=== PATIENT | female | born 2005 | race Caucasian/White ===

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

== ENCOUNTER 2025-04-30 11:18 | Outpatient (REF) | payer BC, SELFPAY ==
--- OUTSIDE RECORDS SUMMARY | 2025-05-01 13:08 | XMS_ITS | Encounter Summary ---
Author Organization [facility] Address [address] [place] [address] Phone Care Team Providers Care Category Planner Name Role Phone Sugey Santiago MD Primary Care Provider [phone] Encounter Details Date Type Department Care Team (Late st Contact Info) Description 10/06/2016 Documentation [facility] [place] [address] [place], [place] [id number] Family Medicine, Physician [facility] [place] [phone] Social History Tobacco Use Types Packs/Day Years Used Date Smoking Tobacco: Never Assessed Comments Unknown Sex and Gender Information Value Date Recorded Sex Assigned at Female 10/18/2021 1:51 PM EDT Legal Sex Female 4:57 PM EDT Gender Identity Female 10/18/2021 1:51 PM EDT Sexual Orientation Bisexual 11/26/2023 1: 46 PM EDT documented as of this encounter Plan of Treatment Not on file documented as of this encounter Visit Diagnoses Not on filedocumented in this encounter Care Teams Category Planner Relationship Specialty Start Date End Date Sugey Santiago MD [address] [place] [phone] PCP - General Pediatrics 10/30/22 documented as of this encounter
--- OUTSIDE RECORDS SUMMARY | 2025-05-01 13:08 | XMS_ITS | Encounter Summary ---
Author Organization [facility] Address [address] [place] [address] Phone Care Team Providers Care Oracle Technical Developer Name Role Phone Sugey Santiago MD Primary Care Provider [phone] Encounter Details Date Type Department Care Team (Late st Contact Info) Description 01/24/2017 Document[place] [facility] [place] [address] [place], [place] [phone] Family Medicine, Physician [facility] [place], [place] [phone] Social History Tobacco Use Types Packs/Day Years [...] on filedocumented in this encounter Care Teams Oracle Technical Developer Relationship Specialty Start Date End Date Sugey Santiago MD [address] [place] [phone] PCP - General Pediatrics 10/30/22 documented as of this encounter
--- OUTSIDE RECORDS SUMMARY | 2025-05-01 13:08 | XMS_ITS | Encounter Summary ---
Author Organization [facility] Address [address] [place] [address] Phone Care Team Providers Care Script Girl Name Role Phone Sugey Santiago MD Primary Care Provider [phone] Encounter Details Date Type Department Care Team (Late st Contact Info) Description 03/22/2017 Conversion Encounter [facility] [place] [address] [place] [address] Social History Tobacco Use Types Packs/Day Years [...] on filedocumented in this encounter Care Teams Script Girl Relationship Specialty Start Date End Date Sugey Santiago MD [address] [place] [address] PCP - General Pediatrics 10/30/22 documented as of this encounter
--- OUTSIDE RECORDS SUMMARY | 2025-05-01 13:08 | XMS_ITS | Encounter Summary ---
Author Organization [facility] Address [address] [place] [address] Phone Care Team Providers Care Vehicle Window Tinter Name Role Phone Sugey Santiago MD Primary Care Provider [phone] Encounter Details Date Type Department Care Team (Late st Contact Info) Description 10/03/2016 Documentation [facility] [place] [facility] [place] [address] [place], [place] [phone] Family Medicine, Physician [facility] [place], [place] [address] Social History Tobacco Use Types Packs/Day Years [...] on filedocumented in this encounter Care Teams Vehicle Window Tinter Relationship Specialty Start Date End Date Sugey Santiago MD [address] [place] [address] PCP - General Pediatrics 10/30/22 documented as of this encounter
--- OUTSIDE RECORDS SUMMARY | 2025-05-01 13:08 | XMS_ITS | Clinical Summary ---
Author Organization [facility] Address [address] [place] [address] Phone Care Team Providers Care Fish Farmer Name Role Phone Sugey Santiago MD Primary Care Provider [phone] Allergies Active Allergy Reactions Criticality Noted Date Comments Cefaclor Hives Cefuroxime Hives 07/16/2023 Cephalexin Hives 07/16/2023 Influenza Virus Vaccine Split Hives And swollen arm Medications albuterol HFA 108 (90 Base) MCG/ACT inhaler PROAIR HFA; inhale 2 puff by inhalation route every 4 - 6 hours as needed; 90 MCG; 01/08/2017; Active 7 Active Vit-Iron Carbonyl-FA (Prenatabs Rx) 29-1 MG tablet TAKE 1 TABLET BY MOUTH EVERY DAY FOR 100 DAYS 5 Active Active Problems Problem Noted Date Diagnosed Date Encounter for initial prescription of contracept shravan pills 07/16/2023 Assessment & Plan (07/16/2023 5:04 PM EST): I reviewed options including control pills, implant, Depo shot, and IUD. Since she does not have a predisposition to blood clots and would like to regulate her menses, improve her menstrual cramps and acne, she is a good candidate for the combination control pill. I reviewed that control is only effective if taken every day. It is not effective at preventing STDs so if she is going to be sexually active, then she should use condoms consistently. It can take a few months to regulate her menses. Plan is to start OCPs on the Sunday of her next menses and follow up in 2 months, sooner if concern. Moderate asthma 11/20/2022 Overview (11/20/2022): 11/20/[address] Vidal 2 weeks ago for asthma exacerbation and treated with prednisone. Off prednisone now. Using albuterol prior to lacrosse practice. Has follow up with Dr Vidal in 1 month. Not taking Advair. Only on Singulair. Plan: Restart Advair as prescribed by Dr Vidal Continue Singulair Follow up with Dr Vidal in 1 month. Assessment & Plan (11/26/2023 1:45 PM EDT): Followed by Dr Vidal - last seen November 2022 at which time she was treated with prednisone for an asthma flare, Advair was restarted, and continued on Singulair. She is now been off all meds for a year and due to see Dr Vidal. Assessment & Plan (11/20/2022 9:36 AM EDT): Saw Dr Vidal 2 weeks ago for asthma exacerbation and treated with prednisone. Off prednisone now. Using albuterol prior to lacrosse practice. Has follow up with Dr Vidal in 1 month. Not taking Advair. Only on Singulair. Plan: Restart Advair as prescribed by Dr Vidal Continue Singulair Follow up with Dr Vidal in 1 month. Wears glasses 11/20/2022 Overview (11/20/2022): Wears glasses. Followed by Optho yearly Assessment & Plan (11/20/2022 9:38 AM EDT): Wears glasses. Followed by Optho yearly Resolved Problems Problem Noted Date Diagnosed Date Resolved Date Verruca pedis 07/16/2023 11/26/2023 TMJ (dislocation of temporom andibular joint), initial encounter 10/18/2021 11/26/2023 Overview (10/18/2021): Injury last summer 2020. To discuss with dentist to get referral to oral surgeon. Assessment & Plan (10/18/2021 2:19 PM EDT): Injury last summer 2020. To discuss with dentist to get referral to oral surgeon. History of COVID-19 07/18/2021 11/21/19 23 Overview (07/18/2021): 07/06/21 Assessment & Plan (10/18/2021 1:29 PM EDT): Continues to have loss of smell from Covid. Weight loss, abnormal 06/16/20202022 Assessment & Plan (10/18/2021 2:20 PM EDT): Pt has stopped losing weight. Did discuss trying to gain a bit more wt. Attention and concentration deficit 06/16/2020 10/18/2021 Overview (06/16/2020): Brother has ADHD and is on medication and followed by Dr Baxter. Father also with hx of ADHD and is on medication. Assessment & Plan (06/16/2020 5:38 PM EST): Pt is here with mom re struggling with school work and attention. She does not have a history of this dx. I recommended that she get evaluated by Alfonso Baxter who is the med provider for her brother as I am not comfortable giving her this diagnosis without more input from teachers which is hard to get given pt is doing school virtually and they do not know her well. Also with hx of anxiety. Anxiety 06/16/2020 11/20/2022 Overview (06/16/2020): Positive AZAR today. Long hx of anxiety per pt and mom. Assessment & Plan (10/18/2021 2:20 PM EDT): Somewhat improved Not interested in treatment Assessment & Plan (06/16/2020 5:40 PM EST): Positive AZAR today. Long hx of anxiety per pt and mom. Acne vulgaris 02/21/2018 11/20/2022 Overview (02/21/2018): Mild acne. Using clindamycin lotion and tretinoin .025 Mild intermittent asthma without complication 11/30/19 10 10/18/2021 Overview (02/12/2019): No sx in over a year. Assessment & Plan (02/21/2018 1:28 PM EDT): Has not used singulair in many months. Occas proair use as needed. Encounters Date Type Department Care Team Description 04/07/2025 Telephone [facility] [address] [place], [place] [phone] Kay Roth MA 04/01/2025 2:45 PM EDT Office Visit [facility] [address] [place] [address] Jeny Dowling NP Amenorrhea (Primary Dx) from Last 3 Months Immunizations Immunization Administration Dates Next Due DTaP / Hep B / IPV 01/10/2006,2005, 006 DTaP 5 08/12/2009,01/02/2007 HPV Vaccine 9 Valent 02/12/2019,02/21/2018 Hep A, ped/adol 07/17/2007,07/11/2006 Hep B, ped/adol 2005 Hib (HbOC) 01/02/2007 Hib (PRP-T) 01/10/2006,2005,2005 IPV 08/12/2009 Influenza, injectable, trivalent 010,08/11/2008,06/06/2007, 007,07/11/2006 MMR 08/12/2009 MMRV 07/11/2006 Meningococcal B Trumenba 11/26/2023,11/20/2022 Meningococcal Conj (Menactra) MCV4P 10/18/2021,0 02/21/2018 Pneumococcal Conjugate 01/02/2007,2005,2005, 006 Tdap 02/21/2018 Varicella 08/12/2009 Family History Medical History Relation Name Comments ADD / ADHD Brother Vincent Baker ADD / ADHD Father Ramana Baker Testicular cancer Father Ramana Baker Hypertension Maternal Grandfather No Known Problems Maternal Grandmother No Known Problems Mother Ashleigh Baker PATRICK disease Paternal Grandfather Hypertension Paternal Grandfather Relation Name Status Comments Brother Vincent Baker Alive Brother: Alive and well Father Ramana Baker Alive Father: Alive a nd well Maternal Grandfather Alive Maternal Grandmother Alive Mother Ashleigh Baker Alive Mother: Alive a nd well, thyroid Other No family histo ry of *Dental caries, Family history of *Sudden /ND under 55, No family history of *Heart Disease, Family history of Hypertension, No family history of *CVA/Stroke Paternal Grandfather Alive Paternal Grandmother Alive Social History Tobacco Use Types Packs/Day Years Used Date Smoking Tobacco: Never Assessed Hunger/Food Answer Date Recorded In the last 12 months, did y ou or your family ever eat less than you felt you should because there wasn't enough money for food? No 11/26/2023 Stable Housing Answer Date Recorded Are you worried that in the next 2 months you may not have stable housing? No 11/26/2023 Transportation Concerns Answer Date Rec orded In the last 12 months, have you or your family ever had to go without healthcare because you didn't have a way to get there? No 11/26/2023 Hazards in Home Answer Date Recorded Think about the place you li ve. Do you have problems with any of the following? Pests (mice or roaches), mold, no/not working smoke detectors, water leaks, no window guards. No 2023 Financing Utilities Answer Date Recorde d In the last 12 months, has t he electric, gas, oil, or water Expert threatened to shut off your services in your home? No 11/26/2023 Safety at Home Answer Date Recorded Are you or your family worried about feeling saf e in your home? No 11/26/2023 Outside Support Answer Date Recorded Do you feel that you need mo re support from other people or programs to help you care for yourself or your family? No 11/26/2023 Understanding Health Concerns Answer Da te Recorded Do you need help understandi ng your or your child's healthcare needs (diagnosis, medications, plan, etc.)? No 11/26/2023 Financing Health Concerns Answer Date R ecorded In the last 12 months, was t here a time when your child needed to see a doctor or get medications or supplies but could not because of cost? No 11/26/2023 Missing School or Work Answer Date German rded Did you or your child miss s chool or work because of a health problem that could have been avoided? No 11/26/2023 Child Education Answer Date Recorded Do you have concerns about y our/your child's learning or behavior in school, preschool, or daycare? No 11/26/2023 Comments No Sex and Gender Information Value Date Recorded Sex Assigned at Female 10/18/2021 1:51 PM EDT Legal Sex Female 4:57 PM EDT Gender Identity Female 10/18/2021 1:51 PM EDT Sexual Orientation Bisexual 11/26/2023 1: 46 PM EDT Last Filed Vital Signs Vital Sign Reading Time Taken Comments Blood Pressure 117/73 04/01/2025 2:53 PM EDT Pulse 69 04/01/2025 2:53 PM EDT Temperature 37.3 C (99.2 F) 04/01/2025 2:53 PM EDT Respiratory Rate - - Oxygen Saturation 99% 01/08/2017 12:00 AM EDT Inhaled Oxygen Concentration - - Weight 67.2 kg (148 lb 3.2 oz) 04/01/2025 2:53 P M EDT Height 172.2 cm (5' 7.8 ) 11/26/2023 1:16 PM EDT Body Mass Index 22.67 11/26/2023 1:16 PM EDT Plan of Treatment Health Maintenance Due Date Last Done Comments Pneumococcal Vaccine (1 of 1 - PPSV23, PCV20, or PCV21) 2011 01/02/2007, 01/10/2006, 2005, Additional history exists HIV Screening 2020 Hepatitis C Screening 2023 Chlamydia and Gonorrhea Screening 08/06/2024 11/26/2023, 11/20/2022, 10/18/2021 Influenza Vaccines (#1) 2025 08/12/19 10, 08/11/2008, 06/06/2007, Additional history exists COVID-19 Vaccine ( - 2024-2 6 season) 2025 09/16/2022, 10/04/2021, 09/13/2021 DTaP,Tdap,and Td Vaccines (7 - Td or Tdap) 02/22/2028 02/21/2018, 08/12/2009, 01/02/2007, Additional history exists Hepatitis B Vaccines Completed 01/10/2006, 2005, 2005, Additional history exists HIB Vaccines Completed 01/02/2007, 02/2006, 2005, Additional history exists Hepatitis A Vaccines Completed 07/17/2007, 07/11/20 06 IPV Vaccines Completed 08/12/2009, 02/2006, 2005, Additional history exists MMR Vaccines Completed 08/12/2009, 07/11/2006 Varicella Vaccines Completed 08/12/2009, 07/11/2006 HPV Vaccines Completed 02/12/2019, 02/21/2018 Meningococcal Vaccine Completed 10/18/2021, 018 Men B Vaccine Completed 11/26/2023, 11/20/2022 Procedures * Due to [place] [employer] law, this organization might not be sharing sensitive test results. Procedure Name Priority Date/Time Associated Diagnosis Comments CHLAMYDIA AND GONORRHEA, AMPLIFIED Routine 11/26/2023 1:41 PM EDT Encounter for screening examination for chlamydial infection from Last 3 Months or Most Recently Relevant to Health Maintenance Results * Due to [facility] law, this organization might not be sharing sensitive test results. * Chlamydia and Gonorrhoea, Amplified (11/26/2023 1:41 PM EDT) C trach GABRIELA Negative Negative [facility] N gonorrhoeae GABRIELA Negative Negative [facility] Urine (Urine) 11/26/2023 1:4 1 PM EDT 11/26/2023 Comment:URINE Narrative [facility] - 11/28/2023 7:06 AM EDT Performed at: - [facility] [address] [id number] Blower Operator: Nilma Govea MD, Phone: [phone] us Sugey Santiago MD LAB MICROBIOLOGY - GENERAL ORD ERABLES Final Result [facility] [address] [place] [address] from Last 3 Months or Most Recently Relevant to Health Maintenance Insurance [facility] PPO Care Teams Fish Farmer Relationship Specialty Start Date End Date Sugey Santiago MD [address] [place] [phone] PCP - General Pediatrics 10/30/22
--- OUTSIDE RECORDS SUMMARY | 2025-05-01 13:08 | XMS_ITS | Encounter Summary ---
Author Organization [facility] Address [address] [place] [address] Phone Care Team Providers Care Spring Tacker Name Role Phone Sugey Santiago MD Primary Care Provider [phone] Encounter Details Date Type Department Care Team (Late st Contact Info) Description 01/07/2014 Documentation [facility] [place] [address] [place], [place] [phone] Family Medicine, Physician [address] [place] [phone] Social History Tobacco Use Types Packs/Day Years [...] on filedocumented in this encounter Care Teams Spring Tacker Relationship Specialty Start Date End Date Sugey Santiago MD [address] [place] [phone] PCP - General Pediatrics 10/30/22 documented as of this encounter
--- OUTSIDE RECORDS SUMMARY | 2025-05-01 13:08 | XMS_ITS | Encounter Summary ---
Author Organization [facility] Address [address] [place] [phone] Phone Care Team Providers Care Failure Analysis Technician Name Role Phone Sugey Santiago MD Primary Care Provider [phone] Encounter Details Date Type Department Care Team (Late st Contact Info) Description 07/05/2012 Documentation [facility] [place] [address] [place], [place] [phone] Family Medicine, Physician [address] [place] [phone] Social History Tobacco Use Types Packs/Day Years [...] on filedocumented in this encounter Care Teams Failure Analysis Technician Relationship Specialty Start Date End Date Sugey Santiago MD [address] [place] [phone] PCP - General Pediatrics 10/30/22 documented as of this encounter
--- OUTSIDE RECORDS SUMMARY | 2025-05-01 13:08 | XMS_ITS | Clinical Summary ---
Author Organization [facility] Address [address] [place] [address] Phone Care Team Providers Care Chairman Emeritus Name Role Phone Sugey Santiago MD Primary Care Provider Allergies Active Allergy Reactions Criticality Noted Date Comments Cefaclor 02/11/2021 Flu Vac 2011 (18-64yrs)(Pf) 02/12/20 21 Influenza Virus Vaccine Tri- Split 3330-8578 Hives 03/28/2024 And swollen arm Medications cromolyn (OPTICROM) 4 % ophthalmic solution Place 1-2 drops into each eye 6 (six) times a day for 7 days. 10 mL 4 Active PRENATABS RX Tab TAKE 1 TABLET BY MOUTH EVERY DAY FOR 100 DAYS 5 Active erythromycin (ROMYCIN) ophthalmic ointment Place 0.5 inches into each eye every 6 (six) hours. 3.5 g 5 Active erythromycin (ROMYCIN) ophthalmic ointment Place 0.5 inches into each eye nightly at bedtime. 3.5 g 5 04/04/20 25 Discontinued Active Problems Comments Yes No known active problems Encounters Date Type Department Care Team Description 04/04/2025 1:20 PM EDT Office Visit [facility] at [address] [address] Kyree Trinh PA-C Greenspan, Bryna, PA-C Acute conjunctivitis of left eye, unspecified acute conjunctivitis type (Primary Dx) from Last 3 Months Social History Tobacco Use Types Packs/Day Years Used Date Smoking Tobacco: Never Smokeless Tobacco: Never Tobacco Cessation:Counseling Given: Not Answered Education Answer Date Recorded Are you interested in more education? Not on josh e 12/02/2022 Are you concerned about learning? Not on file 12/02/2022 No 12/02/2022 No 12/02/2022 Digital Access Answer Date Recorded No 12/31/2022 No 12/31/2022 Reliable internet access at home? Not on file 12/31/2022 Device with a working camera? Not on file Comments Yes Sex and Gender Information Value Date Recorded Sex Assigned at Not on file Legal Sex Female 7:26 PM EDT Gender Identity Not on file Sexual Orientation Not on file Last Filed Vital Signs Vital Sign Reading Time Taken Comments Blood Pressure 96/62 04/04/2025 1:35 PM EDT Pulse 71 04/04/2025 1:35 PM EDT Temperature 36.8 C (98.3 F) 04/04/2025 1:35 PM EDT Respiratory Rate 16 04/04/2025 1:35 PM EDT Oxygen Saturation 98% 04/04/2025 1:35 PM EDT Inhaled Oxygen Concentration - - Weight 59 kg (130 lb) 04/04/2025 1:35 PM EDT Height 170.2 cm (5' 7 ) 04/04/2025 1:35 PM EDT Body Mass Index 20.36 04/04/2025 1:35 PM EDT Plan of Treatment Health Maintenance Due Date Last Done Comments DEVELOPMENTAL/BEHAVIORAL SCREENING (PHQ, PSC, or SWYC) 2008 DEPRESSION SCREENING 2017 COMBINED DTaP,Tdap,Td (2 - T d or Tdap) 03/21/2018 02/21/2018 CHLAMYDIA SCREENING 2021 ADOLESCENT UNIVERSAL LIPID SCREENING 2022 HEPATITIS C SCREENING 2023 HIV ONE-TIME SCREENING (18-6 5 YEARS) 2023 HEPATITIS B VACCINES (1 of 3 - 19+ 3-dose series) 2024 COVID-19 VACCINE ( - 2024-2 6 season) 2025 09/16/2022, 10/04/2021, 09/13/2021 BMI ASSESSMENT 04/04/2026 04/04/2025 SMOKING Hx and SMOKELESS TOBACCO SCREENING 04/04/2026 04/04/2025 RSV VACCINE (1 - 1-dose 75+ series) 2080 MMR VACCINES Completed 08/12/2009, 07/11/2006 VARICELLA VACCINES Completed 08/12/2009, 07/11/2006 HPV VACCINES Completed 02/12/2019, 02/21/2018 MENINGOCOCCAL VACCINES (ACWY) Completed , 02/21/2018 MENINGOCOCCAL VACCINES (B) Completed 11/25, 11/20/2022 HEPATITIS A VACCINES Aged Out No long er eligible based on patient's age to complete this topic HIB VACCINES Aged Out No longer eligi ble based on patient's age to complete this topic PNEUMOCOCCAL VACCINES (0-49 years) Aged Out No longer eligible b ased on patient's age to complete this topic Medical Devices Not on file [place] [address] EPO [facility] PPO EPO PPO EPO [place] [address] [place] [address] [address] [place] [address] PPO E[place] [address] [place] [address] PPO EPO PPO EPO PPO EPO PPO EPO PPO EPO PPO EPO PPO EPO PPO EPO PPO E[place] [place] [address] PPO EPO Care Teams Chairman Emeritus Relationship Specialty Start Date End Date Sugey Santiago MD [address] [place] [address] [place] [address] PCP - General Pediatrics 04/04/25 Additional Source Comments The information contained in this document represents components of the legal health record. It is not the complete legal health record.[facility]
--- OUTSIDE RECORDS SUMMARY | 2025-05-01 13:08 | XMS_ITS | Encounter Summary ---
Author Organization [facility] Address [address] [place] [address] Phone Care Team Providers Care Veneer Sorter Name Role Phone Sugey Santiago MD Primary Care Provider [phone] Encounter Details Date Type Department Care Team (Late st Contact Info) Description 01/07/2014 Documentation [facility] [place] Family Medicine [address] [place], [place] [phone] Family Medicine, Physician [address], [place] [phone] Social History Tobacco Use Types Packs/Day Years [...] on filedocumented in this encounter Care Teams Veneer Sorter Relationship Specialty Start Date End Date Sugey Santiago MD [address] [place] [address] PCP - General Pediatrics 10/30/22 documented as of this encounter
--- OUTSIDE RECORDS SUMMARY | 2025-05-01 13:08 | XMS_ITS | Encounter Summary ---
Author Organization [facility] Address [address] [place] [address] Phone Care Team Providers Care Taxation Economist Name Role Phone Sugey Santiago MD Primary Care Provider [phone] Encounter Details Date Type Department Care Team (Late st Contact Info) Description 01/07/2014 Documentation [facility] [place] Family Medicine [address] [place], [place] [phone] Family Medicine, Physician [address] [phone] Social History Tobacco Use Types Packs/Day Years [...] on filedocumented in this encounter Care Teams Taxation Economist Relationship Specialty Start Date End Date Sugey Santiago MD [address] [place] [address] PCP - General Pediatrics 10/30/22 documented as of this encounter
--- OUTSIDE RECORDS SUMMARY | 2025-05-01 13:08 | XMS_ITS | Encounter Summary ---
Author Organization [facility] Address [address] [place] [address] Phone Care Team Providers Care Hot Stone Setter Name Role Phone Sugey Santiago MD Primary Care Provider [phone] Encounter Details Date Type Department Care Team (Late st Contact Info) Description 06/24/2012 Documentation [facility] [address] [place], [place] [phone] Family Medicine, Physician [address] [phone] Social History Tobacco Use Types Packs/Day Years [...] on filedocumented in this encounter Care Teams Hot Stone Setter Relationship Specialty Start Date End Date Sugey Santiago MD [address] [place] [address] PCP - General Pediatrics 10/30/22 documented as of this encounter
--- OUTSIDE RECORDS SUMMARY | 2025-05-01 13:08 | XMS_ITS | Encounter Summary ---
Author Organization [facility] Address [address] [place] [address] Phone Care Team Providers Care Client Relationship Consultant Name Role Phone Sugey Santiago MD Primary Care Provider [phone] Encounter Details Date Type Department Care Team (Late st Contact Info) Description 04/07/2025 Telephone [facility] [address] [place] [address] [place], [place] [address] [place] [address] Social History Tobacco Use Types Packs/Day Years [...] t he electric, gas, oil, or water company threatened to shut off your services in [...] on filedocumented in this encounter Care Teams Client Relationship Consultant Relationship Specialty Start Date End Date Sugey Santiago MD [address] [place] [address] PCP - General Pediatrics 10/30/22 documented as of this encounter
--- OUTSIDE RECORDS SUMMARY | 2025-05-01 13:08 | XMS_ITS | Encounter Summary ---
Author Organization [facility] Address [address] [place] [address] Phone Care Team Providers Care Handmade Tile Artist Name Role Phone Sugey Santiago MD Primary Care Provider [phone] Encounter Details Date Type Department Care Team (Late st Contact Info) Description 06/24/2012 Documentation [facility] [place] Family Medicine [address] [place], [place] [phone] Family Medicine, Physician [address], [place] [phone] Social History Tobacco Use Types Packs/Day Years [...] on filedocumented in this encounter Care Teams Handmade Tile Artist Relationship Specialty Start Date End Date Sugey Santiago MD [address] [place] [address] PCP - General Pediatrics 10/30/22 documented as of this encounter
--- OUTSIDE RECORDS SUMMARY | 2025-05-01 13:09 | XMS_ITS | Encounter Summary ---
Author Organization [facility] Address [address] [place] [address] Phone Care Team Providers Care Machine Clothing Replacer Name Role Phone Sugey Santiago MD Primary Care Provider [phone] Encounter Details Date Type Department Care Team (Late st Contact Info) Description 11/23/2009 Documentation [facility] [place] Family Medicine [address] [place], [place] [phone] Family Medicine, Physician [address] [phone] Social History Tobacco Use Types Packs/Day Years [...] on filedocumented in this encounter Care Teams Machine Clothing Replacer Relationship Specialty Start Date End Date Sugey Santiago MD [address] [place] [address] PCP - General Pediatrics 10/30/22 documented as of this encounter
--- OUTSIDE RECORDS SUMMARY | 2025-05-01 13:09 | XMS_ITS | Patient Health Record ---
[facility] Address [address] [place] [address] Care Team Providers Care Bridge Teacher Name Role Phone Dante GRANT, Adela Primary Care Provider Selene Del Cid Unavailable [phone] Allergies Allergen (clinical drug ingredient) Drug/Non Drug Allergy documented on EMR Reaction Allergy Type Onset Date Status cefaclor Cefaclor hives Drug Allergy Active Ceftin hives Drug Allergy Active Keflex hives Drug Allergy Active Reason For Referral No Information Medications Medication SIG (Take, Route, Fr equency, Duration) Notes Start Date End Date Status Cephalexin 500 MG 1 tablet Orally Twic e a day; Duration: 5 days Not-Taking predniSONE 10 MG Oral; Duration: 15 Days Active Social History Tobacco Use: Social History Observation Description Date Details (start date - stop date) Never Smoker NA - NA Tobacco Use/Smoking Question Answer Notes Are you a: nonsmoker Additional Findings: Tobacco Non-User Current no n-smoker Alcohol Screen Question Answer Notes Did you have a drink containing alcohol in the p ast year? No Points 0 Interpretation Negative Tobacco use other than smoking: Question Answer Notes Are you an other tobacco user? 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
== END 2025-04-30 11:19 | disposition home or self-care (01) ==
LOC: HO.HOSX 11:18
PROVIDERS: Visit Provider Physician Assistant
DX: Z13.89 Encounter for screening for other disorder (principal)